=== PATIENT | male | born 1950 | race Caucasian/White ===

== ENCOUNTER 2017-05-18 17:46 | Observation (INO) ==
[2017-05-18] MEDS ORDERED: ZOFRAN IV PRN (18:09)
[2017-05-18] MEDS ORDERED: ROCEPHIN 1 GM in NS 50 ML IV SCH (18:15)
[2017-05-18] MEDS ORDERED: SODIUM CHLORIDE 0.9% INJ SCH (18:15)
[2017-05-18] MEDS: NS 1,000 ML IV SCH (21:58)
[2017-05-18] MEDS: LEVAQUIN 500 MG/D5W 500 MG/100 ML IVPB IV SCH (23:38)
[2017-05-19] MEDS: PROTONIX IV SCH ×3 (06:00→18:25)
[2017-05-19 06:19] LABS: HEMATOCRIT 36.7 % (42.0-52.0); HEMOGLOBIN 12.2 g/dL (14.0-18.0); MCH 29.6 PG (27-31); MCHC 33.2 g/dL (33-37); MCV 89.1 FL (81-99); MPV 10.9 FL (7.4-10.4); RBC 4.12 XMIL (4.7-6.1)
[2017-05-19 06:54] LABS: AGAP 12; ALBUMIN 3.1 g/dL (3.5-5.0); ALKALINE PHOSPHATASE 52 U/L (32-122); BUN 14 mg/dL (8-22); CALCIUM 8.3 mg/dL (8.8-10.2); CHLORIDE 101 mmol/L (98-107); CK PROFILE 16 U/L (24-204); COSMO 271; GOT 7 U/L (10-34); GPT 5 U/L (10-44); MAGNESIUM 1.4 mg/dL (1.5-2.7); POTASSIUM 3.7 mmol/L (3.5-5.1); SODIUM 135 mmol/L (136-145); TCO2 22 mmol/L (25-35); TOTAL PROTEIN 6.1 g/dL (6.3-8.3)
[2017-05-19] MEDS: TYLENOL PO PRN (10:52)
[2017-05-19] MEDS: NS 1,000 ML IV SCH (11:26)
[2017-05-19] MEDS: LEVAQUIN 500 MG/D5W 500 MG/100 ML IVPB IV SCH (20:13)
[2017-05-19] MEDS ORDERED: MAGNESIUM SULFATE 2 GM/S.W.I. 2 GM/50 ML IVPB IV ONE (20:37)
[2017-05-20] MEDS ORDERED: MAGNESIUM SULFATE 2 GM/S.W.I. 2 GM/50 ML IVPB IV ONE (00:15)
[2017-05-20] MEDS: NS 1,000 ML IV SCH (00:16)
[2017-05-20 05:52] LABS: HEMATOCRIT 37.1 % (42.0-52.0); HEMOGLOBIN 12.3 g/dL (14.0-18.0); MCH 29.1 PG (27-31); MCHC 33.2 g/dL (33-37); MCV 87.9 FL (81-99); MPV 10.8 FL (7.4-10.4); RBC 4.22 XMIL (4.7-6.1)
[2017-05-20] MEDS: PROTONIX IV SCH ×2 (06:11→18:18)
[2017-05-20 06:42] LABS: AGAP 10; ALKALINE PHOSPHATASE 51 U/L (32-122); BUN 11 mg/dL (8-22); CALCIUM 8.4 mg/dL (8.8-10.2); CHLORIDE 100 mmol/L (98-107); COSMO 267; GOT 8 U/L (10-34); GPT 5 U/L (10-44); POTASSIUM 3.6 mmol/L (3.5-5.1); SODIUM 133 mmol/L (136-145); TCO2 23 mmol/L (25-35); TOTAL PROTEIN 6.6 g/dL (6.3-8.3)
--- NOTE | 2017-05-20 12:49 | Diag Imaging Result Doc PS360 ---
CHEST-PORTABLE - 05/20/2017 INDICATION: transfer to rehab TECHNIQUE: COMPARISON: 05/27/1714 FINDINGS: The lungs are normally expanded and clear. Heart size and mediastinal contours are normal. No pneumothorax or pleural effusion. There is a stable calcified granuloma in the left lung base. IMPRESSION: Negative exam. Electronically signed by [place] 05/20/2017 12:46 PM
[2017-05-20] MEDS: TYLENOL PO PRN ×2 (13:56→20:51)
[2017-05-20] MEDS: LEVAQUIN 500 MG/D5W 500 MG/100 ML IVPB IV SCH (20:33)
[2017-05-21] MEDS: NS 1,000 ML IV SCH ×2 (04:36→19:28)
[2017-05-21] MEDS: PROTONIX IV SCH (06:04)
[2017-05-21 06:25] LABS: MANUAL DIFF NEEDED? NO
[2017-05-21 06:32] LABS: BASO% 0.6 % (0.0-0.8); EOS# 0.53 X1000 (0.0-0.7); EOS% 8.5 % (0.0-10.0); HEMATOCRIT 38.3 % (42.0-52.0); HEMOGLOBIN 12.8 g/dL (14.0-18.0); LYMPH# 3.36 X1000 (1.2-3.4); LYMPH% 54.1 % (20.5-51.1); MCH 29.3 PG (27-31); MCHC 33.4 g/dL (33-37); MCV 87.6 FL (81-99); MONO% 8.1 % (1.7-9.3); MPV 10.9 FL (7.4-10.4); NEUT% 28.7 % (42.2-75.2); PLT 245 X1000 (130-400); RBC 4.37 XMIL (4.7-6.1)
[2017-05-21 06:50] LABS: AGAP 9; ALBUMIN 3.2 g/dL (3.5-5.0); ALKALINE PHOSPHATASE 52 U/L (32-122); BUN 11 mg/dL (8-22); CALCIUM 8.4 mg/dL (8.8-10.2); CHLORIDE 99 mmol/L (98-107); COSMO 264; GOT 10 U/L (10-34); GPT 6 U/L (10-44); MAGNESIUM 1.8 mg/dL (1.5-2.7); POTASSIUM 3.6 mmol/L (3.5-5.1); SODIUM 132 mmol/L (136-145); TCO2 23 mmol/L (25-35); TOTAL PROTEIN 6.9 g/dL (6.3-8.3)
[2017-05-21] MEDS: PRINIVIL PO SCH (12:14)
[2017-05-21 16:58] LABS: URINE SOURCE CLEAN CATCH
[2017-05-21 17:01] LABS: BILIRUBIN URINE NEGATIVE (NEGATIVE); BLOOD URINE 1+ (NEGATIVE); CLARITY CLEAR (CLEAR); COLOR YELLOW; LEUKOCYTES URINE NEGATIVE (NEGATIVE); NITRITE URINE NEGATIVE (NEGATIVE); PH URINE 6.5; PROTEIN URINE NEGATIVE (NEGATIVE); UROBILINOGEN URINE NORMAL
[2017-05-21] MEDS: FOLIC ACID PO SCH (18:40)
[2017-05-21] MEDS: TYLENOL PO PRN (20:23)
[2017-05-21] MEDS: LEVAQUIN 500 MG/D5W 500 MG/100 ML IVPB IV SCH (20:23)
[2017-05-22 06:10] LABS: MANUAL DIFF NEEDED? NO
[2017-05-22 06:17] LABS: BASO% 0.5 % (0.0-0.8); HEMATOCRIT 37.3 % (42.0-52.0); HEMOGLOBIN 12.2 g/dL (14.0-18.0); IMM GRAN# 0.01 X1000 (0.0-0.04); IMM GRAN% 0.2 % (0.0-0.5); LYMPH# 3.12 X1000 (1.2-3.4); LYMPH% 49.9 % (20.5-51.1); MCH 28.9 PG (27-31); MCHC 32.7 g/dL (33-37); MCV 88.4 FL (81-99); MONO# 0.52 X1000 (0.11-0.59); MONO% 8.3 % (1.7-9.3); MPV 10.8 FL (7.4-10.4); NEUT% 33.1 % (42.2-75.2); PLT 240 X1000 (130-400); RBC 4.22 XMIL (4.7-6.1)
[2017-05-22 06:54] LABS: AGAP 8; ALBUMIN 3.1 g/dL (3.5-5.0); BUN 18 mg/dL (8-22); CALCIUM 8.3 mg/dL (8.8-10.2); CHLORIDE 103 mmol/L (98-107); COSMO 271; POTASSIUM 3.9 mmol/L (3.5-5.1); SODIUM 134 mmol/L (136-145); TCO2 24 mmol/L (25-35)
[2017-05-22] MEDS: PROTONIX IV SCH (06:57)
[2017-05-22] MEDS: VITAMIN D PO SCH (10:10)
[2017-05-22] MEDS: PRINIVIL PO SCH (10:10)
[2017-05-22] MEDS: FOLIC ACID PO SCH (10:10)
[2017-05-22] MEDS: CARDIZEM CD PO SCH (10:10)
[2017-05-22] MEDS ORDERED: TUMS PO ONE (16:44)
[2017-05-22] MEDS: PRILOSEC PO SCH (16:45)
[2017-05-22] MEDS: TYLENOL PO PRN (17:37)
[2017-05-22] MEDS: NS 1,000 ML IV SCH (17:37)
[2017-05-22] MEDS ORDERED: LEVAQUIN PO SCH (21:00)
[2017-05-23] MEDS ORDERED: PRINIVIL PO SCH (06:49)
[2017-05-23] MEDS: PRILOSEC PO SCH (06:58)
[2017-05-23] MEDS: FOLIC ACID PO SCH (09:46)
[2017-05-23] MEDS: VITAMIN D PO SCH (09:46)
[2017-05-23] MEDS: CARDIZEM CD PO SCH (09:46)
[2017-05-23 11:11] VITALS: BP 149/83
== END 2017-05-23 13:05 ==
LOC: INTOOBSV 17:46 → P.DIRADM 17:46 → SUATTDRO 17:46 → P.MEDSURG 19:25
PROVIDERS: ATTEND Family Medicine